=== PATIENT | male | born 1935 | race Caucasian/White ===

== ENCOUNTER 2017-10-02 12:55 | Inpatient (IN) | payer MEDICARE, MEDICAID ==
[~2017-10-02] VITALS: Ht 182.8 cm; Wt 68.5 kg
--- NOTE | ~2017-10-02 | PR ---
[place], [place] PROGRESS NOTE NAME: BRANDON CARPIO JR UNIT #: [id number] ROOM: 314 DOCTOR: BRANDON VARELA MD BIRTHDATE: [birth year] DOS: 10/07/2017 CHIEF COMPLAINT: "Good morning Sir, how are you today." SUMMARY OF THE VISIT: The patient was interviewed in the dining area where he sat watching television after eating breakfast. He engaged in brief superficial conversation. For the most part, he was pleasant and cooperative. He voiced no complaint. Nurses report that overall there has been a gradual trend toward improvement. MENTAL STATUS: He is alert and oriented to self, possibly place, not time. Mood does seem to be more euthymic. He is more engaging. There are no symptoms of hypomania or brian. There are no overt auditory or visual hallucinations. No delusions, no paranoia. He does process slowly at times and short term memory has gaps. PLAN: I will maximize out both the Exelon patch and the Namenda, bringing the patch up to 13.3 mg daily and the Namenda to 10 mg b.i.d. He still has a significant upper extremity tremor, worse on the left than the right. I will increase Cogentin from 0.5 mg twice a day to 1 mg twice a day to see if this impacts positively on the tremor. Valproic acid level is therapeutic at 73.3, so I will maintain the current dose. Continue to engage in individual and del valle milieu activity, returning to the least restrictive environment when stable. BRANDON VARELA MD CM:PNTRANS [id number] BRANDON VARELA MD 10/07/17 0957 interface
--- NOTE | ~2017-10-02 | PR ---
[place], [place] PROGRESS NOTE NAME: BRANDON CARPIO JR UNIT #: [id number] ROOM: 314 DOCTOR: BRANDON VARELA MD BIRTHDATE: [birth year] DOS: 10/11/2017 CHIEF COMPLAINT: "Good morning." SUMMARY OF THE VISIT: The patient was interviewed as he sat in a Tanika chair in the dining area, watching television. He was resting at first, but with some prompting did awake. He engaged in very brief conversation, 1 or 2 word responses, often times drifting off in between. Nurses report that he has been somewhat sedate and the family is concerned over the level of somnolence. MENTAL STATUS: He is alert and oriented to self only. His responses were limited due to his somnolence, so I did not get much information out of him. PLAN: Nurses report and I did notice that the rash that was so prominent at the beginning of the week, has now dissipated. I will discontinue the Atarax in case this is causing the daytime somnolence. His valproic acid level is still not therapeutic at 48, however, I am hesitant to adjust the Depakote any further. As I want to have this somnolence clear before we make any further adjustments. He still continues to have episodic bouts of combativeness. So I will monitor and support, engage in individual and del valle milieu activity, returning to the least restrictive environment when psychiatrically stable. BRANDON VARELA MD CM:PNTRANS [id number] BRANDON VARELA MD 10/11/17 0943 interface
--- NOTE | ~2017-10-02 | PR ---
[place], [place] PROGRESS NOTE NAME: BRANDON CARPIO JR UNIT #: [id number] ROOM: 314 DOCTOR: BRANDON VARELA MD BIRTHDATE: [birth year] DOS: 10/08/2017 CHIEF COMPLAINT: The patient was nonverbal. SUMMARY OF THE VISIT: The patient was interviewed or attempted to be interviewed as he sat in a Tanika chair in the dining area. I attempted to engage him in conversation, but he was somewhat somnolent. Nurses did report that he became increasingly agitated yesterday evening into the night requiring p.r.n. intervention, which has resulted in this current state of somnolence. Nurses report that after having many good days, yesterday was a very bad day and that he sundown and escalated horribly becoming both verbally and physically aggressive with staff. MENTAL STATUS: Limited due to his level of somnolence. PLAN: I will renew his p.r.n. Ativan in case he requires p.r.n. intervention. Given the fact that the p.r.n. was effective, I will add Ativan 0.5 mg 3 times a day to attempt to head off some of the escalation. We will continue to attempt to engage him in individual and del valle milieu activity, returning to the least restrictive environment when stable. BRANDON VARELA MD CM:PNTRANS BRANDON VARELA MD 10/08/1741 interface
--- NOTE | ~2017-10-02 | PR ---
[place], [place] PROGRESS NOTE NAME: BRANDON CARPIO JR UNIT #: [id number] ROOM: 314 DOCTOR: BRANDON VARELA MD BIRTHDATE: [birth year] DOS: 10/09/2017 CHIEF COMPLAINT: The patient was somnolent and did not engage in conversation. SUMMARY OF THE VISIT: The patient was resting in a Tanika chair. He was sleeping. I attempted to call out his name on multiple occasions. I did attempt to touch his shoulder and gently shake him, but to no avail. The patient did not receive any PRNs but had been given straight Ativan 0.3 mg 3 times a day, which seems to have caught up with him causing the sedation. MENTAL STATUS: My mental status is limited due to his overall level of somnolence. PLAN: I will discontinue Cogentin as I do want to start Atarax 10 mg t.i.d. and I want to limit my anticholinergic load. I will use the Atarax both as an antianxiety agent and as an agent to decrease his response. He does seem to have a rash secondary to the antibiotics and this should help that. I will discontinue his straight Ativan, but continue the p.r.n. Ativan if he requires intervention, attempt to engage in individual and del valle milieu activities, returning to the least restrictive environment when psychiatrically stable. BRANDON VARELA MD CM:PNTRANS [id number] BRANDON VARELA MD 10/09/17 0953 interface
--- NOTE | ~2017-10-02 | PR ---
[place], [place] PROGRESS NOTE NAME: BRANDON CARPIO JR UNIT #: [id number] ROOM: 314 DOCTOR: BRANDON VARELA MD BIRTHDATE: [birth year] DOS: 10/12/2017 CHIEF COMPLAINT: "Good morning, how are you?" SUMMARY OF THE VISIT: The patient was interviewed as he sat in the dining area, eating his breakfast. He was much more alert and conversant. He was pleasant and bright upon approach, although nurses report he still has some episodes of agitation and irritability, but these seem to be lessening in frequency and intensity. MENTAL STATUS: He remains alert and oriented to self. It is unclear if he realizes he is in the hospital. He is certainly not oriented to time. Mood does seem to be gradually trending toward euthymia. Affect is more appropriate. There are no symptoms of brian or hypomania. There is no gross psychosis. He does process extremely slow and short term memory is exceedingly poor. PLAN: I will maintain his current psychotropic regimen, monitor for risk, benefits, engage in individual and del valle milieu activity, returning then to the long-term care facility of his choice when stable. BRANDON VARELA MD CM:PNTRANS 0 BRANDON VARELA MD 10/12/1730 interface
--- NOTE | ~2017-10-02 | PR ---
[place], [place] PROGRESS NOTE NAME: BRANDON CARPIO JR UNIT #: [id number] ROOM: 314 DOCTOR: BRANDON VARELA MD BIRTHDATE: [birth year] DOS: 10/10/2017 CHIEF COMPLAINT: "Morning, I am okay." SUMMARY OF THE VISIT: The patient was interviewed as he reclined in a Tanika chair working on his breakfast. He engaged readily in conversation. This was the first time in several days that he was more engaging. He was pleasant and cooperative upon approach. He voiced no complaints and stated that he was happy here. He was warm. He was fed and he slept well. There is no agitation or aggression, no mood lability noted. MENTAL STATUS: He is alert and oriented to person, doubtful to place, certainly not time. Mood seems fairly euthymic. Affect more appropriate. There are no symptoms of brian or hypomania. There are no overt auditory or visual hallucinations. No delusions, no paranoia. He does process conversation slowly and short term memory is exceedingly poor. PLAN: I will go ahead and recheck a valproic acid level to maintain it in the therapeutic range, engage in individual and del valle milieu activity, returning to the least restrictive environment when psychiatrically stable. BRANDON VARELA MD CM:PNTRANS [id number] BRANDON VARELA MD 10/10/17 1046 interface
--- NOTE | ~2017-10-02 | DS ---
[place], [place] DISCHARGE SUMMARY NAME: BRANDON CARPIO JR [facility] #: [id number] UNIT #: [id number] ROOM: 314 DOCTOR: BRANDON VARELA MD BIRTHDATE: [birth year] DOS: 10/14/2017 CHIEF COMPLAINT: "What the hell do you want?" HISTORY OF PRESENT ILLNESS: This is an 82-year-old male who is a resident of the [facility]. He was sent here on an involuntary basis from [facility]. The patient has become increasingly verbally and physically combative toward staff and other residents there. His behavior has escalated to the point where he is consistently putting himself and other people at risk for harm. Attempts to redirect have met with further escalation. Adjusting his meds have been unsuccessful. He is admitted now to rule out any organic factors and to stabilize on medication. ALLERGY: PENICILLINS. PAST MEDICAL HISTORY: He also has a history of psoriasis, GERD, cardiac pacemaker placement, hyperlipidemia, coronary artery disease, diabetes, hypertension, major depression, recurrent, Alzheimer dementia, anxiety disorder, Parkinson's disease and debility. SUMMARY OF HOSPITAL COURSE: The patient was admitted to the unit where he was started on Depakote 500 mg 3 times daily. Additionally, Exelon patch and Namenda were started at 4.6 and 5 mg respectively, both of these were gradually and steadily increased to their maximum dose. Exelon patch then being increased from 4.6 to 9.5 and ultimately to 13.3 mg daily and the Namenda from 5 mg a day to 10 mg twice a day. The patient had a slow and steady improvement with this combination of medications. Valproic acid level peaked at 73.3 and then later when rechecked was 48.0. The patient did seem to improve and when the Depakote level was slightly higher, he was a little bit more somnolent as the level dipped to 48 even though it was out of therapeutic range. He was much more calm and redirectable. He engaged pleasantly in conversation and he even joked. The patient had improved sufficiently by October 14 to return back to the [facility]. MENTAL STATUS AT DISCHARGE: The patient is alert and oriented to person, place, but not time. Mood is significantly more euthymic. Affect is much more appropriate. He is more stable. There is no agitation or aggression. There is no hypomania or brian. There is no psychosis. Short term memory is poor, otherwise he is intact. FINAL DIAGNOSES: Intermittent explosive disorder and Alzheimer dementia. PLAN: The patient will return to the [facility]. His scripts have been e-scribed to [facility] his long-term care pharmacy and I will follow him upon his admission there. [place], [place] DISCHARGE SUMMARY NAME: BRANDON CARPIO JR UNIT #: [id number] ROOM: 314 DOCTOR: BRANDON VARELA MD BIRTHDATE: [birth year] BRANDON VARELA MD CM:DISCHARG 9 BRANDON VARELA MD 10/14/17 0949 interface
--- NOTE | ~2017-10-02 | PR ---
[place], [place] PROGRESS NOTE NAME[id number] UN[facility] #: [id number] ROOM: 314 DOCTOR: Raul VALLE,MAXIMINO BIRTHDATE: [birth year] DOS: 10/06/2017 PSYCHIATRIC PROGRESS NOTE SUBJECTIVE: Patient seen and spoke with the staff. Per staff, patient is calm, some irritability, but easily redirectable. Patient was pleasant, cooperative. He was in the day area. He said that he is doing okay. Does not seem to be in any distress. Denied side effect from the medication. Reported good sleep and appetite. MENTAL STATUS EXAMINATION: Pleasant, cooperative. Described his mood as "okay." Affect, mood congruent. He denied auditory or visual hallucination. No delusion or paranoia noted. He denied suicidal ideation, intent or plan. He also denied homicidal ideation, intent or plan. ASSESSMENT: Dementia with behavioral disturbances. PLAN: 1. Continue current medication and care. 2. Continue redirection. 3. Supportive care. 4. Final medication management and discharge plan by the regular team. MAXIMINO VALLE MD CM:CHIQUI 20 19 Raul VALLE 10/06/172319 interface
--- NOTE | ~2017-10-02 | PR ---
[place], [place] PROGRESS NOTE NAME: BRANDON CARPIO JR [facility] #: [id number] UNIT #: [id number] ROOM: 314 DOCTOR: Raul VALLE,MAXIMINO BIRTHDATE: [birth year] DOS: 10/05/2017 PSYCHIATRIC PROGRESS NOTE SUBJECTIVE: The patient seen and spoke with the staff. Per staff, the patient is doing well, cooperative, taking medication. No behavioral problems or issues. Reportedly, his Depakote level was 73.3. The patient was pleasant, cooperative. He reports he is doing okay. Denied any side effect from the medication. He reports good sleep and appetite. Did not express any concern. MENTAL STATUS EXAMINATION: The patient was pleasant, cooperative. Described his mood as "okay." Affect somewhat flat. Thought processes with confabulation. Denied auditory or visual hallucination. No delusion or paranoia noted. Denied suicidal ideation, intent or plan. He also denied any homicidal ideation, intent or plan. PLAN: 1. Continue current medication and care. 2. Continue redirection. 3. Supportive care. 4. Final medication management and discharge plan by the regular team. MAXIMINO VALLE MD CM:CHIQUI 1826 Raul VALLE 10/06/176 interface
--- NOTE | ~2017-10-02 | PR ---
[place], [place] PROGRESS NOTE NAME: BRANDON CARPIO JR UNIT #: [id number] ROOM: 314 DOCTOR: BRANDON VARELA MD BIRTHDATE: [birth year] DOS: 10/13/2017 CHIEF COMPLAINT: "Hello." SUMMARY OF THE VISIT: The patient was sitting in a Tanika chair watching television in the dining area. He engaged readily in conversation. He denied any issues, stating that he was fine and that he is sleeping and eating well. He denied any pain or discomfort. MENTAL STATUS: He is alert and oriented with some time gaps that are very prominent. Mood does seem to be trending towards euthymia. Affect is more appropriate. There is no hypomania, brian or psychosis. Memory has short term gaps. There was no agitation or aggression towards me. PLAN: At this point is to maintain his current psychotropic regimen, engage in individual and del valle milieu activity, returning to the least restrictive environment when stable. BRANDON VARELA MD CM:PNTRANS 1504 30 BRANDON VARELA MD 10/13/172128 interface
--- NOTE | ~2017-10-02 | WRIGHTHP ---
[place], [place] PATIENT HISTORY AND PHYSICAL EXAM NAME: BRANDON CARPIO JR [facility] #: [id number] UNIT #: [id number] ROOM: 314 DOCTOR: BRANDON VARELA MD BIRTHDATE: [birth year] DOS: 10/03/2017 CHIEF COMPLAINT: "What the hell do you want?" SUMMARY OF THE VISIT: The patient was attempted to be interviewed in his room. He was very agitated and noncompliant. He is an 82-year-old white male who is a resident of [facility]. The patient was sent here on an involuntary basis from [facility]. The patient had become increasingly verbally and physically combative toward staff and other residents. His behavior was such that he is consistently escalating to the point where he was putting himself and other people at risk for harm. He is admitted now to rule out organic factors and to attempt to stabilize on medication with the plan to return to the least restrictive environment when stable. PAST MEDICAL HISTORY: Remarkable for an allergy to PENICILLINS. He also has a history of psoriasis, GERD, cardiac pacemaker placement, hyperlipidemia, coronary artery disease, diabetes, hypertension, major depression, Alzheimer's dementia, anxiety disorder, Parkinson's disease and debility. MENTAL STATUS: The patient is alert and oriented to self. It is unclear if he knows he is in the hospital. He is certainly not oriented to time. Mood is extremely labile and he is very volatile and short fused and his responses to me were short, terse and irritable. There did not seem to be the presence of any psychotic symptomatology at this time. He does process information very slowly and he has sparse thoughts. Short term memory is exceedingly poor. DIAGNOSIS: Intermittent explosive disorder. PLAN: I have already started him on Depakote 500 mg 3 times a day. I will increase his Exelon patch from 4.6 to 9.5 mg daily with the target dose of 13.3 in mind. I will also increase his Namenda from 5 mg a day to 5 mg twice daily with a dose of 10 mg twice a day in mind. Both of these to help improve or maintain ADLs, behavior and cognition. We will engage in individual and del valle milieu activity with the ultimate plan to return to the least restrictive environment when psychiatrically stable. [place], [place] PATIENT HISTORY AND PHYSICAL EXAM NAME: SHIRIN ERNSTBRANDON UNIT #: [id number] ROOM: 314 DOCTOR: BRANDON VARELA MD BIRTHDATE: [birth year] BRANDON VARELA MD CM:HISPHYS:PATIENT HISTORY AND PHYSICAL EXAMINATION [id number] BRANDON VARELA MD 10/03/17 1017 interface
--- NOTE | ~2017-10-02 | CON ---
[place], [place] REPORT OF CONSULTATION NAME: BRANDON CARPIO JR [facility] #: [id number] UNIT #: [id number] ROOM: 314 DOCTOR: HARLEY MARIANO ED.D (KAYE) BIRTHDATE: [birth year] DOS: 10/03/2017 HISTORY OF PRESENT ILLNESS: The patient is an 82-year-old male referred by Dr. Donahue for competency evaluation. At the present time, this patient is on the senior behavioral health unit at [facility]. He was sent to the hospital from [facility] facility in [place], [place]. He had become extremely agitated and violent at [facility]. He is and I did speak at length with his . PAST MEDICAL HISTORY: His medical history is pertinent for psoriasis, diabetes mellitus, GERD, major neurocognitive disorder -- Alzheimer disease with behavioral disturbance, coronary artery disease, Parkinson's disease. MEDICATIONS: Include Depakote, Exelon, Namenda, Risperdal, Nitrostat, pravastatin, insulin, L-Dopa, vitamin D, digitalis, Cardizem, Lasix, glipizide, Imdur and metoprolol. PHYSICAL EXAMINATION: This patient was awake, alert and oriented to person only. He had no idea where he was and he had no idea of the date. He was extremely confused and garbled nonsensical words frequently as I attempted to interview him. His short and long-term memory are markedly impaired. After speaking to his , she stated she wanted to have a power of title attorney for healthcare, but he was unable to sign it when he was in the halfway due to the fact that he was not competent. I spoke to her about guardianship and I did complete guardianship papers and they will be filed with [facility]. He is a resident of [place]. He had briefly been at [facility] in [place], [place]. The patient does get quite agitated, according to his history and also was very agitated when I tried to interview him. It is clear that he is not competent to make informed healthcare decisions. DIAGNOSES: Major neurocognitive disorder -- Alzheimer disease with behavioral disturbance. RECOMMENDATIONS: In my opinion, this patient needs a guardianship established and his would be his guardian after my conversation with her. Thank you very much for this consult. [place], [place] REPORT OF CONSULTATION NAME: BRANDON CARPIO JR UNIT #: [id number] ROOM: 314 DOCTOR: HARLEY MARIANO ED.D) BIRTHDATE: [birth year] HARLEY MARIANO ED.D CM:CONSTR:REPORT OF CONSULTATION 1406 10/04/17 0528 interface BRANDON DONAHUE MD
[~2017-10-02 12:55] MED LIST: AMINOPHYLLIN200 MG PO; ARICEPT10 M1 PO; ARICEPT5 M1 PO; ASPIRIN81 M1 PO; CARBIDOPA-LEVODOPA 2; CARDIZEM CD120 M2 PO; CARDIZEM CD180 MG PO; CLOBETASOL PROP0.053 T; CLONAZEPAM1 MG PO; CYANOCOBAL1000 MCG/M SC; DILTIAZEM HYDR120 M2 PO; DULCOLAX10 M1 RC; FLEET ADULT ENEM1 EA R; FLONASE ALLERG9.9 ML NS; FLURBIPROFEN100 MG PO; FLUTICASON0.05 MG/A1 NAS; FUROSEMIDE40 MG PO; GLUCOTROL XL5 MG PO; IMDUR SA30 MG PO; IMDUR30 MG PO; LANOXIN0.125 MG PO; LASIX20 MG PO; LASIX40 MG PO; LEVEMIR10 ML SC; LIPITOR10 MG PO; LOPRESSOR25 MG PO; LOPRESSOR50 M1 PO; METFORMIN HCL500 MG PO; MILK OF MA400 MG/5 M PO; MYLANTA240 MG PO; Motrin,Rufen800 MG PO; NEPHROCAPS1 SGL PO; NITROSTAT0.4 MG SL; NOVOLOG10 ML SC; NOVOLOG100 U/ML SC; OMEPRAZOLE DR20 MG PO; PLAVIX75 M1 PO; POTASSIUM CHLO10 ME1 PO; POTASSIUM CHLO20 ME3 PO; PRAVACHOL20 MG PO; PROTONIX20 MG PO; RESTORIL15 MG PO; RISPERDAL0.25 MG PO; SERTRALINE HYDR50 MG PO; SINEMET 25-2501 TA1 PO; THORAZINE PO; TYLENOL325 M1 PO; VALIUM10 MG PO; VITAMIN D2000 IU PO; VITAMIN D34000 UNIT PO; WARFARIN SODIU2.5 MG PO
[2017-10-02] MEDS ORDERED: VITAMIN D50000 UNIT PO ×2 (13:13→23:05)
[2017-10-02] MEDS ORDERED: XANAX0.5 MG PO (13:13)
[2017-10-02] MEDS ORDERED: ARICEPT5 M1 PO (13:20)
[2017-10-02] MEDS ORDERED: LASIX20 MG PO (13:21)
[2017-10-02] MEDS ORDERED: SINEMET 25-2501 EACH PO (13:23)
[2017-10-02] MEDS ORDERED: PRAVACHOL20 MG PO ×2 (13:30→22:58)
[2017-10-02] MEDS ORDERED: KENALOG 0.1%80 GM T (13:55)
[2017-10-02 18:41] VITALS: BP 128/66
[2017-10-02 20:00] VITALS: BP 130/65
[2017-10-02] MEDS ORDERED: ALPRAZOLAM0.5 M3 PO (22:00)
[2017-10-02] MEDS ORDERED: VITAMIN D31000 UNIT PO (22:04)
[2017-10-02] MEDS ORDERED: DONEPEZIL HCL5 MG PO (22:06)
[2017-10-02] MEDS ORDERED: DILTIAZEM HCL120 MG PO (22:11)
[2017-10-02] MEDS ORDERED: DIGOXIN125 MCG PO (22:13)
[2017-10-02] MEDS ORDERED: GLIPIZIDE5 MG PO (22:15)
[2017-10-02] MEDS ORDERED: FUROSEMIDE20 M1 PO (22:15)
[2017-10-02] MEDS ORDERED: HUMALOG100 UNIT/1 SQ (22:17)
[2017-10-02] MEDS ORDERED: PANTOPRAZOLE SO40 MG PO (22:24)
[2017-10-02] MEDS ORDERED: CLOPIDOGREL75 MG PO (22:28)
[2017-10-02] MEDS ORDERED: RISPERIDONE0.25 M2 PO (22:29)
[2017-10-02] MEDS ORDERED: SERTRALINE HYDR25 MG PO (22:37)
[2017-10-02] MEDS ORDERED: CARBIDOPA-LEVO1 EAC7 PO (22:39)
[2017-10-02] MEDS ORDERED: DULCOLAX10 M1 R (22:43)
[2017-10-02] MEDS ORDERED: FLEET MINERAL133 ML PO (22:44)
[2017-10-02] MEDS ORDERED: GLUCAGON EMERGEN1 M1 IJ (22:49)
[2017-10-02] MEDS ORDERED: IMDUR SA30 MG PO (22:51)
[2017-10-02] MEDS ORDERED: METOPROLOL TART50 M1 PO (22:54)
[2017-10-02] MEDS ORDERED: NITROSTAT0.4 MG SL (22:58)
[2017-10-02] MEDS ORDERED: TRIDERM28.4 GM TD (23:02)
[2017-10-03 05:54] LABS: ALKALINE PHOSPHATASE 90 U/L (45-117); BUN 26 mg/dl (7-24); CHLORIDE 106 mmol/L (98-107); CHOLESTEROL 131 mg/dL (<200); CREATININE 1.22 mg/dL (0.70-1.30); HDL CHOLESTEROL 35 mg/dl (40-60); LDL CHOLESTEROL 77 mg/dL (9-159); POTASSIUM 4.1 mmol/L (3.5-5.1); SGOT/AST 15 IU/L (3-35); SGPT/ALT 21 U/L (12-78); SODIUM 144 mmol/L (136-145); TOTAL PROTEIN 6.7 gm/dL (6.4-8.2); TRIGLYCERIDES 94 mg/dl (<150); VLDL CHOLESTEROL 19 mg/dL (6-40)
[2017-10-03 05:59] LABS: BASO % 0.4 % (0.0-1.0); EOS # 0.2 10*3/uL (0.0-0.4); EOS % 2.6 % (1.0-4.0); HEMATOCRIT 38.9 % (42.0-52.0); HEMOGLOBIN 12.3 g/dl (14.0-18.0); LYMPH # 1.2 10*3/uL (1.3-4.4); LYMPH % 16.8 % (27.0-41.0); MEAN CELL VOLUME 84.9 fl (80.0-94.0); MEAN CORPUSCULAR HGB 26.9 pg (27.0-31.0); MEAN CORPUSCULAR HGB CONC 31.6 g/dl (33.0-37.0); MEAN PLATELET VOLUME 11.2 fl (9.6-12.3); MONO # 0.6 10*3/uL (0.1-1.0); MONO % 9.1 % (3.0-9.0); NEUT # 4.9 10*3/uL (2.3-7.9); PLATELET COUNT AUTOMATED 132 10*3/uL (130-400); RED BLOOD COUNT 4.58 10*6/uL (4.50-5.90); RED CELL DISTRI WIDTH 15.4 % (0-14.5); WHITE BLOOD COUNT 6.9 10*3/uL (4.8-10.8)
[2017-10-03 06:04] LABS: DIGOXIN 0.95 ng/ml (0.8-2.0)
[2017-10-03 07:05] LABS: VITAMIN D, 25-HYDROXY 57.3 ng/mL (30-100)
[2017-10-03 08:03] VITALS: BP 142/65
[2017-10-03 20:31] VITALS: BP 145/55
[2017-10-04 06:32] LABS: BILIRUBIN NEGATIVE (NEGATIVE); BLOOD NEGATIVE (NEGATIVE); CLARITY CLOUDY (CLEAR); COLOR YELLOW (YELLOW); GLUCOSE NEGATIVE (NEGATIVE); KETONE TRACE (NEGATIVE); LEUKO ESTERASE 3+ (NEGATIVE); NITRITE POSITIVE (NEGATIVE)
[2017-10-04 06:59] LABS: BACTERIA 3+; WBC TNTC wbc/hpf (0-5)
[2017-10-04 08:00] VITALS: BP 118/62
[2017-10-04 20:58] VITALS: BP 125/75
[2017-10-05 08:01] VITALS: BP 120/76
[2017-10-05 19:54] VITALS: BP 107/62
[2017-10-06 07:58] VITALS: BP 118/74
[2017-10-06 20:14] VITALS: BP 115/66
[2017-10-07 08:08] VITALS: BP 136/54
[2017-10-07 19:47] VITALS: BP 133/54
[2017-10-08 08:02] VITALS: BP 132/65
[2017-10-08 20:00] VITALS: BP 114/62
[2017-10-09 07:28] VITALS: BP 121/66
[2017-10-09 20:00] VITALS: BP 124/84
[2017-10-10 07:38] VITALS: BP 121/72
[2017-10-10 20:58] VITALS: BP 122/72
[2017-10-11 07:43] VITALS: BP 124/74
[2017-10-11 11:07] LABS: BASO % 0.3 % (0.0-1.0); EOS # 0.2 10*3/uL (0.0-0.4); EOS % 2.6 % (1.0-4.0); HEMATOCRIT 38.9 % (42.0-52.0); LYMPH % 11.1 % (27.0-41.0); MEAN CELL VOLUME 86.6 fl (80.0-94.0); MEAN CORPUSCULAR HGB 26.7 pg (27.0-31.0); MEAN CORPUSCULAR HGB CONC 30.8 g/dl (33.0-37.0); MEAN PLATELET VOLUME 11.1 fl (9.6-12.3); NEUT # 6.5 10*3/uL (2.3-7.9); NEUT % 74.7 % (47.0-73.0); PLATELET COUNT AUTOMATED 147 10*3/uL (130-400); RED BLOOD COUNT 4.49 10*6/uL (4.50-5.90); RED CELL DISTRI WIDTH 15.3 % (0-14.5); WHITE BLOOD COUNT 8.7 10*3/uL (4.8-10.8)
[2017-10-11 11:39] LABS: ALBUMIN 2.9 gm/dl (3.1-4.5); BUN 29 mg/dl (7-24); CHLORIDE 105 mmol/L (98-107); CREATININE 1.26 mg/dL (0.70-1.30); POTASSIUM 3.6 mmol/L (3.5-5.1); SGOT/AST 19 IU/L (3-35); SGPT/ALT 18 U/L (12-78); SODIUM 144 mmol/L (136-145)
[2017-10-11 11:41] LABS: ALKALINE PHOSPHATASE 85 U/L (45-117); TOTAL PROTEIN 6.6 gm/dL (6.4-8.2)
[2017-10-11 20:00] VITALS: BP 144/56
[2017-10-12 08:14] VITALS: BP 127/69
[2017-10-12 20:13] VITALS: BP 120/60
[2017-10-13 08:05] VITALS: BP 150/70
[2017-10-13 20:00] VITALS: BP 120/50
[2017-10-14 09:10] VITALS: BP 122/64
[2017-10-14] MEDS ORDERED: DIVALPROEX SOD125 M1 PO (09:15)
[2017-10-14] MEDS ORDERED: Vitamin D PO (09:15)
[2017-10-14] MEDS ORDERED: EXELON13.3 MG/21 T (09:15)
[2017-10-14] MEDS ORDERED: MEMANTINE HCL10 MG PO (09:15)
== END 2017-10-14 19:17 | DRG 883 ==
LOC: 3N 12:55
PROVIDERS: Psychiatry & Neurology Psychiatry
DX: F63.81 Intermittent explosive disorder (principal); E11.22 Type 2 diabetes mellitus with diabetic chronic kidney disease; E11.51 Type 2 diabetes mellitus with diabetic peripheral angiopathy without gangrene; E11.8 Type 2 diabetes mellitus with unspecified complications; I49.5 Sick sinus syndrome; I48.2 Chronic atrial fibrillation; G20 Parkinson's disease; G25.0 Essential tremor; F01.51 Vascular dementia, unspecified severity, with behavioral disturbance; N30.00 Acute cystitis without hematuria; F23 Brief psychotic disorder; F02.81 Dementia in other diseases classified elsewhere, unspecified severity, with behavioral disturbance; G30.9 Alzheimer's disease, unspecified; I25.5 Ischemic cardiomyopathy; I25.10 Atherosclerotic heart disease of native coronary artery without angina pectoris; E78.5 Hyperlipidemia, unspecified; N18.3 Chronic kidney disease, stage 3 (moderate); K21.9 Gastro-esophageal reflux disease without esophagitis; I12.9 Hypertensive chronic kidney disease with stage 1 through stage 4 chronic kidney disease, or unspecified chronic kidney disease; R45.1 Restlessness and agitation; F41.1 Generalized anxiety disorder; L40.9 Psoriasis, unspecified; F32.9 Major depressive disorder, single episode, unspecified; Z95.0 Presence of cardiac pacemaker; Z86.73 Personal history of transient ischemic attack (TIA), and cerebral infarction without residual deficits; Z90.49 Acquired absence of other specified parts of digestive tract; Z98.61 Coronary angioplasty status; Z88.0 Allergy status to penicillin; Z88.2 Allergy status to sulfonamides; Z82.49 Family history of ischemic heart disease and other diseases of the circulatory system

== ENCOUNTER 2017-10-02 17:54 | Emergency (ER) | payer MEDICARE, MEDICAID ==
[~2017-10-02] VITALS: Wt 90.7 kg
[~2017-10-02 17:54] MED LIST changes: +KENALOG 0.1%80 GM T; +SINEMET 25-2501 EACH PO; +VITAMIN D50000 UNIT PO; +XANAX0.5 MG PO
[2017-10-02 17:55] VITALS: BP 156/90
[2017-10-02 18:16] LABS: BASO % 0.3 % (0.0-1.0); EOS # 0.2 10*3/uL (0.0-0.4); EOS % 1.7 % (1.0-4.0); HEMATOCRIT 41.4 % (42.0-52.0); LYMPH # 0.7 10*3/uL (1.3-4.4); LYMPH % 7.5 % (27.0-41.0); MEAN CORPUSCULAR HGB 26.7 pg (27.0-31.0); MEAN CORPUSCULAR HGB CONC 31.4 g/dl (33.0-37.0); MEAN PLATELET VOLUME 10.3 fl (9.6-12.3); MONO # 0.7 10*3/uL (0.1-1.0); MONO % 8.2 % (3.0-9.0); NEUT # 7.4 10*3/uL (2.3-7.9); NEUT % 82.1 % (47.0-73.0); PLATELET COUNT AUTOMATED 135 10*3/uL (130-400); RED BLOOD COUNT 4.87 10*6/uL (4.50-5.90); RED CELL DISTRI WIDTH 15.4 % (0-14.5)
[2017-10-02 18:25] LABS: ACT PARTIAL THROMBO TIME 24.6 SECONDS (20.8-31.5)
[2017-10-02 18:37] LABS: ALBUMIN 3.1 gm/dl (3.1-4.5); ALKALINE PHOSPHATASE 101 U/L (45-117); BUN 25 mg/dl (7-24); CHLORIDE 106 mmol/L (98-107); CREATININE 1.34 mg/dL (0.70-1.30); POTASSIUM 4.6 mmol/L (3.5-5.1); SGOT/AST 17 IU/L (3-35); SGPT/ALT 23 U/L (12-78); SODIUM 144 mmol/L (136-145)
[2017-10-02 18:40] LABS: ETHYL ALCOHOL < 3.0 mg/dl (<3)
[2017-10-02] MEDS ORDERED: ALPRAZOLAM0.5 M3 PO (22:00)
[2017-10-02] MEDS ORDERED: VITAMIN D31000 UNIT PO (22:04)
[2017-10-02] MEDS ORDERED: DONEPEZIL HCL5 MG PO (22:06)
[2017-10-02] MEDS ORDERED: DILTIAZEM HCL120 MG PO (22:11)
[2017-10-02] MEDS ORDERED: DIGOXIN125 MCG PO (22:13)
[2017-10-02] MEDS ORDERED: FUROSEMIDE20 M1 PO (22:15)
[2017-10-02] MEDS ORDERED: GLIPIZIDE5 MG PO (22:15)
[2017-10-02] MEDS ORDERED: HUMALOG100 UNIT/1 SQ (22:17)
[2017-10-02] MEDS ORDERED: PANTOPRAZOLE SO40 MG PO (22:24)
[2017-10-02] MEDS ORDERED: CLOPIDOGREL75 MG PO (22:28)
[2017-10-02] MEDS ORDERED: RISPERIDONE0.25 M2 PO (22:29)
[2017-10-02] MEDS ORDERED: SERTRALINE HYDR25 MG PO (22:37)
[2017-10-02] MEDS ORDERED: CARBIDOPA-LEVO1 EAC7 PO (22:39)
[2017-10-02] MEDS ORDERED: DULCOLAX10 M1 R (22:43)
[2017-10-02] MEDS ORDERED: FLEET MINERAL133 ML PO (22:44)
[2017-10-02] MEDS ORDERED: GLUCAGON EMERGEN1 M1 IJ (22:49)
[2017-10-02] MEDS ORDERED: IMDUR SA30 MG PO (22:51)
[2017-10-02] MEDS ORDERED: METOPROLOL TART50 M1 PO (22:54)
[2017-10-02] MEDS ORDERED: NITROSTAT0.4 MG SL (22:58)
[2017-10-02] MEDS ORDERED: PRAVACHOL20 MG PO (22:58)
[2017-10-02] MEDS ORDERED: TRIDERM28.4 GM TD (23:02)
[2017-10-02] MEDS ORDERED: VITAMIN D50000 UNIT PO (23:05)
== END 2017-10-02 22:54 | disposition admitted as inpatient to this hospital (09) ==
LOC: ED 17:54
PROVIDERS: Emergency Medicine
DX: R45.1 Restlessness and agitation (principal); G30.9 Alzheimer's disease, unspecified; F02.80 Dementia in other diseases classified elsewhere, unspecified severity, without behavioral disturbance, psychotic disturbance, mood disturbance, and anxiety; F41.9 Anxiety disorder, unspecified; F32.9 Major depressive disorder, single episode, unspecified; G20 Parkinson's disease; I48.2 Chronic atrial fibrillation; E11.9 Type 2 diabetes mellitus without complications; N18.9 Chronic kidney disease, unspecified